=== PATIENT | female | born 1945 | race Hispanic/Latino ===

== ENCOUNTER 2018-04-12 15:00 | Outpatient (CLI) | payer MEDICARE, OTHER | END 2018-04-12 15:01 | disposition home or self-care (01) | LOC: LABHHL 15:00 | PROVIDERS: ATTEND Specialist | DX: N63.12 Unspecified lump in the right breast, upper inner quadrant (principal); R92.0 Mammographic microcalcification found on diagnostic imaging of breast | CPT/HCPCS: 88305; 88341; 88342 ==

== ENCOUNTER 2020-06-24 10:00 | Outpatient (CLI) | payer MEDICARE ==
--- NOTE | 2020-06-24 10:39 | Mammography Report ---
DIGITAL DIAGNOSTIC MAMMOGRAM WITH CAD CONVENTIONAL, 06/24/2020 CLINICAL INFORMATION / INDICATION: Patient has a history of right breast cancer status post right mas tectomy in 2008. Patient has no current complaints. TECHNIQUE: Digital left mammographic imaging was performed. This examination was interpreted with the benefit of Computer-aided Detection analysis. COMPARISON: Prior mammograms 02/22/2019 and 10/31/2018 FINDINGS: Breast Density: There are scattered areas of fibroglandular density. No dominant mass, suspicious calcifications or architectural distortion in the left breast. There are stable biopsy clips in the left breast, stable benign-appearing nodularity in the left [address], and stable benign-appearing calcifications in the left breast. There has been no significant barclay ge compared with the prior examinations. IMPRESSION: No mammographic evidence of malignancy. Follow up recommendation: Routine yearly BI-RADS Category 2: Benign. A "normal" or negative report should not discourage follow up or biopsy of a clinically significant f inding. A written summary of these findings will be mailed to the patient. The patient will be entered into a mammography reporting system which will generate a reminder letter for the patient's next appointmen t at the appropriate interval. According to the [employer], yearly mammograms are recommended starting at age 40 and continuing as long as a woman is in good health. Breast MRI is recommended for women with an kennedy roximately 20-25% or greater lifetime risk of breast cancer, including women with a strong family his tory of breast or ovarian cancer and women who have been treated for Hodgkin's disease. Signer Name: Effie Zamudio MD Signed: 06/24/2020 10:34 AM Workstation Name: [employer]
== END 2020-06-24 10:01 | disposition home or self-care (01) ==
LOC: SPVWC 10:00
PROVIDERS: ATTEND Surgery
DX: R92.8 Other abnormal and inconclusive findings on diagnostic imaging of breast (principal)